=== PATIENT | female | born 1995 ===

== ENCOUNTER 2018-02-10 02:00 | Emergency (ER) | payer MEDICAID ==
[2018-02-10 02:08] VITALS: BP 133/76
[2018-02-10] MEDS ORDERED: TORADOL ONE (02:15)
[2018-02-10] MEDS ORDERED: NACL 0.9% 1000 ML 1,000 ML IV ONE (02:50)
[2018-02-10] MEDS ORDERED: TORADOL IV ONE (03:20)
== END 2018-02-10 03:22 | disposition left against medical advice (07) ==
LOC: ED 02:00
DX: R10.9 Unspecified abdominal pain (principal); R11.10 Vomiting, unspecified; Z53.21 Procedure and treatment not carried out due to patient leaving prior to being seen by health care provider
CPT/HCPCS: J1885

== ENCOUNTER 2018-12-03 06:21 | Emergency (ER) | payer MEDICAID, OTHER ==
[2018-12-03] MEDS ORDERED: ZOFRAN IV ONE ×2 (06:48→11:11)
[2018-12-03] MEDS ORDERED: DILAUDID IV ONE ×3 (06:48→10:16)
--- NOTE | 2018-12-03 06:55 | Emergency Department Report ---
ED Abdominal Pain HPI - General Chief Complaint: Abdominal Pain Stated Complaint: ABD PAIN Time Seen by Provider: 12/03/18 06:47 Source: patient, EMS Mode of arrival: Stretcher Limitations: No Limitations - History of Present Illness Initial Comments: Patient is a 22-year-old female that presents emergency room with abdominal pain that started 3 hours ago. Patient states that her abdominal pain is in her lower abdomen and is severe. Patient states the pain is intermittent. Patient states the pain is better with rest and worse with movement. Patient states she is also having nausea and vomiting.. Patient denies R vomitus. Patient is also complaining of constipation. Patient denies blood in her stool. Patient denies fever or chills. Patient denies chest pain shortness of breath. MD Complaint: abdominal pain -: Sudden Location: suprapubic Radiation: none Migration to: no migration Severity: severe Severity scale (0 -10): 10 Quality: stabbing Consistency: constant Improves With: rest Worsens With: vomiting, movement Associated Symptoms: nausea, vomiting, constipation. denies: diarrhea, fever, chills, dysuria, hematemesis, hematochezia, melena, hematuria, anorexia, syncope - Related Data Previous Rx's Medication Instructions Recorded Last Taken Type Ondansetron [Zofran Odt] 4 mg PO Q8HR PRN #12 tab.rapdis 12/03/18 Unknown Rx Sulfamethoxazole/Trimethoprim 1 each PO BID 10 Days #20 tablet 12/03/18 Unknown Rx [Bactrim DS TAB] Allergies Allergy/AdvReac Type Severity Reaction Status Date / Time No Known Allergies Allergy Verified 03/07/16 03:03 ED Review of Systems ROS: Stated complaint: ABD PAIN Other details as noted in HPI Constitutional: denies: chills, fever Eyes: denies: eye pain, eye discharge, vision change ENT: denies: ear pain, throat pain Respiratory: denies: cough, shortness of breath, wheezing Cardiovascular: denies: chest pain, palpitations Endocrine: no symptoms reported Gastrointestinal: abdominal pain, nausea, vomiting, constipation. denies: diarrhea Genitourinary: denies: urgency, dysuria, discharge Musculoskeletal: denies: back pain, joint swelling, arthralgia Skin: denies: rash, lesions Neurological: denies: headache, weakness, paresthesias Psychiatric: denies: anxiety, depression Hematological/Lymphatic: denies: easy bleeding, easy bruising ED Past Medical Hx - Past Medical History Previous Medical History?: Yes Hx Hypertension: Yes (out of lisinipril for 3 weeks.) Hx Diabetes: Yes Additional medical history: Lupus. Opiate abuse and is currently on methadone - Surgical History Past Surgical History?: No - Family History Family history: no significant - Social History Smoking Status: Never Smoker Substance Use Type: Prescribed - Medications Home Medications: Home Medications Medication Instructions Recorded Confirmed Last Taken Type Ondansetron [Zofran Odt] 4 mg PO Q8HR PRN #12 tab.rapdis 12/03/18 Unknown Rx Sulfamethoxazole/Trimethoprim 1 each PO BID 10 Days #20 tablet 12/03/18 Unknown Rx [Bactrim DS TAB] ED Physical Exam - General Limitations: No Limitations General appearance: alert, in no apparent distress - Head Head exam: Present: atraumatic, normocephalic - Eye Eye exam: Present: normal appearance - ENT ENT exam: Present: mucous membranes moist - Neck Neck exam: Present: normal inspection - Respiratory Respiratory exam: Present: normal lung sounds bilaterally. Absent: respiratory distress, wheezes, rales - Cardiovascular Cardiovascular Exam: Present: regular rate, normal rhythm. Absent: systolic murmur, diastolic murmur, rubs, gallop - GI/Abdominal GI/Abdominal exam: Present: soft, tenderness (right upper quadrant tenderness and left lower quadrant tenderness), normal bowel sounds - Rectal Rectal exam: Present: deferred - Extremities Exam Extremities exam: Present: normal inspection - Back Exam Back exam: Present: normal inspection - Neurological Exam Neurological exam: Present: alert, oriented X3 - Psychiatric Psychiatric exam: Present: normal affect, normal mood - Skin Skin exam: Present: warm, dry, intact, normal color. Absent: rash ED Course Vital Signs 12/03/18 12/03/18 12/03/18 06:41 06:42 06:45 Temperature Pulse Rate 77 82 Respiratory 10 L 18 11 L Rate Blood Pressure Blood Pressure [Left] O2 Sat by Pulse 100 100 97 Oximetry 12/03/18 12/03/18 12/03/18 06:46 07:00 07:30 Temperature 98.2 F Pulse Rate 64 77 Respiratory 8 L 21 Rate Blood Pressure 151/95 149/99 Blood Pressure [Left] O2 Sat by Pulse 99 98 Oximetry 12/03/18 12/03/18 08:01 10:22 Temperature Pulse Rate 72 87 Respiratory 10 L 18 Rate Blood Pressure Blood Pressure 159/90 [Left] O2 Sat by Pulse 100 99 Oximetry - Reevaluation(s) Reevaluation #1: Discussed results with patient. Patient states she still having significant pain. Patient was given another milligram Dilaudid. Patient's ultrasound is pending. 12/03/18 10:16 She states her pain is better. She tolerated by mouth intake. Patient states all of her pain is gone and she is ready to be discharged. Patient walking around the room and states she needs to get to her methadone clinic for methadone refill. . Patient states she required so much morphine due to the fact she is on daily methadone and has a history of opiate use. Discussed all results with patient. Patient is stable for discharge. Patient will be discharged home. Patient agrees to plan of care. Patient given discharge instructions. Patient voiced understanding of discharge instructions. 12/03/18 11:39 ED Medical Decision Making - Lab Data Result diagrams: 12/03/18 06:40 12/03/18 06:40 - Radiology Data ULTRASOUND ABDOMEN LIMITED: TECHNIQUE: Transabdominal ultrasound with color Doppler interrogation. HISTORY: right upper quadrant abdominal pain. COMPARISON: CT abdomen pelvis with contrast performed the same day. FINDINGS: LIVER: Normal. BILIARY SYSTEM: Normal. PANCREAS: Normal. RIGHT KIDNEY: Normal. PROXIMAL AORTA: Normal. ASCITES: None. IMPRESSION: Unremarkable exam. Dense material seen in the gallbladder presumably represented vicarious excretion of contrast on CT. CT ABDOMEN PELVIS WITH CONTRAST: HISTORY: Abdominal pain. COMPARISON: none. TECHNIQUE: Helical CT in 1.25mm intervals following IV contrast. Sagittal and coronal reconstructions. FINDINGS: Lung bases: Patchy areas of groundglass infiltration are identified in the right middle lobe and bilateral lower lobes. No pleural effusion or parenchymal lung disease is appreciated. Heart size is normal. Liver: Normal. Biliary system: There is a slightly dense material within the gallbladder which could represent sludge or vicarious excretion of contrast. No calcified gallstones or biliary dilatation is appreciated. Pancreas: Normal. Spleen: Normal. Kidneys/ureters/bladder: Normal. Adrenal glands: Normal. Aorta: Normal. Intestines: Within normal limits given no oral contrast was administered. Appendix: The appendix is not confidently identified, correlate with surgical history. Pelvic viscera: Normal. Ascites: None. Adenopathy: None. Musculoskeletal: Normal. IMPRESSION: Patchy infiltrates at the lung bases concerning for infectious process or pneumonitis. Possible sludge in the gallbladder but no findings to suggest acute cholecystitis. - Medical Decision Making Patient is a 22-year-old female that presents emergency room with abdominal pain and nausea vomiting. Patient had a CT done which show gallbladder sludge and ultrasound was done which shows the gallbladder is normal. The patient's labs unremarkable except for elevated white count and elevated white count most like secondary reactive to pain and nausea vomiting. Patient's UA was positive for UTI. Patient given antibiotics in the ER. Patient also given a prescription at discharge. Patient is stable for discharge. Patient's findings consistent with gastroenteritis and UTI. Patient given discharge instructions - Differential Diagnosis gastroenteritis. UTI. Abdominal pain. Gallbladder pain Critical care attestation.: If time is entered above; I have spent that time in minutes in the direct care of this critically ill patient, excluding procedure time. ED Disposition Clinical Impression: Gastroenteritis, Gallbladder sludge Abdominal pain Qualifiers: Abdominal location: generalized Qualified Code(s): R10.84 - Generalized abdominal pain UTI (urinary tract infection) Qualifiers: Urinary tract infection type: acute cystitis Hematuria presence: with hematuria Qualified Code(s): N30.01 - Acute cystitis with hematuria Disposition: TO HOME OR SELFCARE Is pt being admited?: No Does the pt Need Aspirin: No Condition: Stable Instructions: Urinary Tract Infection in Women (ED), Gastroenteritis (ED), Acute Nausea and Vomiting (ED), Abdominal Pain (ED) Additional Instructions: Patient to follow-up with primary care in 2-3 days. Patient to eat a Delmi diet. Patient to see general surgery for further management of gallbladder. Patient to take Tylenol or ibuprofen when necessary for pain. Patient to return to ER if condition worsens. Patient to take meds as directed. Patient to increase water. Patient to rest. Patient to continue all meds. Prescriptions: Sulfamethoxazole/Trimethoprim [Bactrim DS TAB] 1 each PO BID 10 Days #20 tablet Ondansetron [Zofran Odt] 4 mg PO Q8HR PRN #12 tab.rapdis PRN Reason: Nausea And Vomiting Referrals: ARACELY RAYMUNDO MD [Primary Care Provider] - 2-3 Days Time of Disposition: 11:42
[2018-12-03 07:02] LABS: Basophils # (Auto) 0.1 K/mm3 (0.0-0.1); Basophils % (Auto) 0.7 % (0.0-1.8); Eosinophils % (Auto) 0.1 % (0.0-4.3); Hemoglobin 11.4 gm/dl (10.1-14.3); Lymphocytes # (Auto) 1.3 K/mm3 (1.2-5.4); Lymphocytes % (Auto) 8.8 % (13.4-35.0); Mean Corpuscular HGB Conc 34 % (30-34); Mean Corpuscular Volume 88 fl (79-97); Monocytes # (Auto) 0.9 K/mm3 (0.0-0.8); Monocytes % (Auto) 6.3 % (0.0-7.3); Platelet Count 232 K/mm3 (140-440); Red Blood Count 3.86 M/mm3 (3.65-5.03); Red Cell Distribution Width 17.6 % (13.2-15.2)
[2018-12-03] MEDS ORDERED: NACL 0.9% 1000 ML 1,000 ML IV ONE (07:26)
[2018-12-03 07:36] LABS: Alanine Aminotransferase 26 units/L (7-56); Albumin 4.2 g/dL (3.9-5); BUN/Creatinine Ratio 15; Blood Urea Nitrogen 12 mg/dL (7-17); Calcium 9.1 mg/dL (8.4-10.2); Hemolysis Index 6
--- NOTE | 2018-12-03 09:13 | Cat Scan Report ---
CT ABDOMEN PELVIS WITH CONTRAST: HISTORY: Abdominal pain. COMPARISON: none. TECHNIQUE: Helical CT in 1.25mm intervals following IV contrast. Sagittal and coronal reconstructions. FINDINGS: Lung bases: Patchy areas of groundglass infiltration are identified in the right middle lobe and bilateral lower lobes. No pleural effusion or parenchymal lung disease is appreciated. Heart size is normal. Liver: Normal. Biliary system: There is a slightly dense material within the gallbladder which could represent sludge or vicarious excretion of contrast. No calcified gallstones or biliary dilatation is appreciated. Pancreas: Normal. Spleen: Normal. Kidneys/ureters/bladder: Normal. Adrenal glands: Normal. Aorta: Normal. Intestines: Within normal limits given no oral contrast was administered. Appendix: The appendix is not confidently identified, correlate with surgical history. Pelvic viscera: Normal. Ascites: None. Adenopathy: None. Musculoskeletal: Normal. IMPRESSION: Patchy infiltrates at the lung bases concerning for infectious process or pneumonitis. Possible sludge in the gallbladder but no findings to suggest acute cholecystitis.
[2018-12-03] MEDS ORDERED: ZOSYN/NS 3.375GM/50ML 3.375 GM/50 ML BAG IV ONE (10:00)
--- NOTE | 2018-12-03 10:05 | Ultrasound Report ---
ULTRASOUND ABDOMEN LIMITED: TECHNIQUE: Transabdominal ultrasound with color Doppler interrogation. HISTORY: right upper quadrant abdominal pain. COMPARISON: CT abdomen pelvis with contrast performed the same day. FINDINGS: LIVER: Normal. BILIARY SYSTEM: Normal. PANCREAS: Normal. RIGHT KIDNEY: Normal. PROXIMAL AORTA: Normal. ASCITES: None. IMPRESSION: Unremarkable exam. Dense material seen in the gallbladder presumably represented vicarious excretion of contrast on CT.
[2018-12-03] MEDS ORDERED: MORPHINE IV ONE ×2 (10:17→11:11)
[2018-12-03 10:23] VITALS: BP 159/90
[2018-12-03 11:42] LABS: Bilirubin,Urine NEG (Negative); Blood,Urine SM (Negative); Color,Urine Straw (Yellow); Protein,Urine <15 mg/dL mg/dL (Negative); Urobilinogen,Urine < 2.0 mg/dL (<2.0)
== END 2018-12-03 11:45 | disposition home or self-care (01) ==
LOC: ED 06:21
DX: N39.0 Urinary tract infection, site not specified (principal); K52.9 Noninfective gastroenteritis and colitis, unspecified; K82.8 Other specified diseases of gallbladder; I10 Essential (primary) hypertension; E11.9 Type 2 diabetes mellitus without complications
CPT/HCPCS: 36415; 74177; 76705; 80053; 81001; 83690; 84703; 85025; 96361; 96365; 96375; 96376; 99284; J1170; J2270; J2405; J2543; J7030; Q9967

== ENCOUNTER 2019-06-24 17:09 | Emergency (ER) | payer OTHER ==
[2019-06-24] MEDS ORDERED: FAMOTIDINE 20 MG/2 ML INJ IV ONE (17:48)
[2019-06-24] MEDS ORDERED: ONDANSETRON 4 MG/2 ML INJ IV ONE (17:48)
[2019-06-24] MEDS ORDERED: MORPHINE 4 MG/1 ML INJ IV ONE (17:48)
[2019-06-24] MEDS ORDERED: SODIUM CHLORIDE 0.9% 1000 ML 1,000 ML IV ONE (17:49)
--- NOTE | 2019-06-24 18:00 | Emergency Department Report ---
ED Abdominal Pain HPI - General Chief Complaint: Abdominal Pain Stated Complaint: ABD PAIN Time Seen by Provider: 06/24/19 17:35 Source: patient, EMS Mode of arrival: Wheelchair Limitations: No Limitations - History of Present Illness Initial Comments: Ms. De La Cruz is a 23 yo female wit hx of SLE and mariujuana use who presents with 2 days of lower abdominal pain. She has had recurrent abdominal pain for several years. She attributes the pain to her lupus. She's had constipation. Last bowel movement 2 days ago. She stated sheonly urinated twice in the last days. She had poor appetite. She has lost 20 pounds over the last 2 weeks. Her lupus specialist this affiliated with [facility]. She has been noncompliant with medication regimen due to homelessness. She is now obtaining unemployment payments minutes. Her next appointment with her lupus specialist is in August. She hopes to resume her medication regimen at this time. Denies vaginal bleeding. Denies vaginal discharge. Gradual onset of stabbing pain in right lower and left lower quadrants. Pain does not radiate. Pain is constant. Pain does not change with movement. She has been under the care of a methadone clinic over the last year. She stopped taking methadone 6 weeks ago. The methadone was used to control her pain in joints back and abdomen attributed to lupus. Patient arrived via EMS. MD Complaint: abdominal pain -: Gradual, days(s) Location: LLQ, RLQ Radiation: none Severity: moderate Severity scale (0 -10): 6 Quality: stabbing Consistency: constant Improves With: nothing Worsens With: nothing Associated Symptoms: constipation, anorexia - Related Data Previous Rx's Medication Instructions Recorded Last Taken Type Ondansetron [Zofran Odt] 4 mg PO Q8HR PRN #12 tab.rapdis 12/03/18 Unknown Rx Sulfamethoxazole/Trimethoprim 1 each PO BID 10 Days #20 tablet 12/03/18 Unknown Rx [Bactrim DS TAB] Promethazine [Phenergan] 25 mg PO Q6HR PRN #10 tab 06/24/19 Unknown Rx Allergies Allergy/AdvReac Type Severity Reaction Status Date / Time No Known Allergies Allergy Verified 03/07/16 03:03 ED Review of Systems ROS: Stated complaint: ABD PAIN Other details as noted in HPI Comment: All other systems reviewed and negative Constitutional: denies: fever, malaise Cardiovascular: denies: chest pain Gastrointestinal: abdominal pain, nausea, vomiting, constipation Skin: denies: rash, lesions ED Past Medical Hx - Past Medical History Previous Medical History?: Yes Hx Hypertension: Yes Hx Diabetes: No Additional medical history: Lupus. Pt states she has not taken methadone in 5 weeks and denies narcotic abuse. Her last visit showed methadone use and narcotic abuse - Surgical History Past Surgical History?: No - Social History Smoking Status: Unknown if ever smoked Substance Use Type: None - Medications Home Medications: Home Medications Medication Instructions Recorded Confirmed Last Taken Type Ondansetron [Zofran Odt] 4 mg PO Q8HR PRN #12 tab.rapdis 12/03/18 Unknown Rx Sulfamethoxazole/Trimethoprim 1 each PO BID 10 Days #20 tablet 12/03/18 Unknown Rx [Bactrim DS TAB] Promethazine [Phenergan] 25 mg PO Q6HR PRN #10 tab 06/24/19 Unknown Rx ED Physical Exam - General Limitations: No Limitations General appearance: alert, in no apparent distress, other (legs flexed at hip and knee with crossed leg swing comfortably, moves and transfers briskly) - Head Head exam: Present: atraumatic, normocephalic - Eye Eye exam: Present: normal appearance - ENT ENT exam: Present: mucous membranes moist - Neck Neck exam: Present: normal inspection, full ROM - Respiratory Respiratory exam: Present: normal lung sounds bilaterally. Absent: respiratory distress, wheezes, rales, rhonchi - Cardiovascular Cardiovascular Exam: Present: regular rate, normal rhythm, normal heart sounds. Absent: systolic murmur, diastolic murmur, rubs, gallop - GI/Abdominal GI/Abdominal exam: Present: soft, normal bowel sounds. Absent: distended, ten derness, guarding, rebound - Extremities Exam Extremities exam: Present: normal inspection - Neurological Exam Neurological exam: Present: alert, oriented X3 - Psychiatric Psychiatric exam: Present: normal affect, normal mood - Skin Skin exam: Present: warm, dry, intact, normal color. Absent: rash ED Course Vital Signs 06/24/19 06/24/19 17:20 18:17 Temperature 99.4 F Pulse Rate 75 76 Respiratory 20 14 Rate Blood Pressure 124/86 Blood Pressure 125/90 [Left] O2 Sat by Pulse 100 99 Oximetry ED Medical Decision Making - Lab Data Result diagrams: 06/24/19 18:02 06/24/19 18:02 Laboratory Results - last 24 hr 06/24/19 06/24/19 06/24/19 18:02 18:02 18:02 WBC 5.3 RBC 4.10 Hgb 12.6 Hct 37.4 MCV 91 MCH 31 MCHC 34 RDW 15.7 H Plt Count 286 Lymph % (Auto) 40.2 H Bent % (Auto) 9.6 H Eos % (Auto) 0.5 Baso % (Auto) 1.0 Lymph # 2.1 Bent # 0.5 Eos # 0.0 Baso # 0.1 Seg Neutrophils % 48.7 Seg Neutrophils # 2.6 Sodium 142 Potassium 3.6 Chloride 106.0 Carbon Dioxide 21 L Anion Gap 19 BUN 6 L Creatinine 0.7 Estimated GFR > 60 BUN/Creatinine Ratio 9 Glucose 92 POC Glucose Calcium 9.2 Total Bilirubin 0.40 Direct Bilirubin < 0.2 Indirect Bilirubin 0.2 AST 10 ALT 8 Alkaline Phosphatase 69 Total Protein 7.1 Albumin 4.2 Albumin/Globulin Ratio 1.4 Lipase 24 HCG, Qual Negative 06/24/19 18:32 WBC RBC Hgb Hct MCV MCH MCHC RDW Plt Count Lymph % (Auto) Bent % (Auto) Eos % (Auto) Baso % (Auto) Lymph # Bent # Eos # Baso # Seg Neutrophils % Seg Neutrophils # Sodium Potassium Chloride Carbon Dioxide Anion Gap BUN Creatinine Estimated GFR BUN/Creatinine Ratio Glucose POC Glucose 88 Calcium Total Bilirubin Direct Bilirubin Indirect Bilirubin AST ALT Alkaline Phosphatase Total Protein Albumin Albumin/Globulin Ratio Lipase HCG, Qual - Medical Decision Making Ms. De La Cruz presents with lower abdominal pain. Normal exam. Appears well. DDX: IBS, PID, cannabinoid hyperemesis syndrome Recommended supportive care. rx: promethazine CBC chemistry within normal limits. Normal white count 5000. negative. Critical care attestation.: If time is entered above; I have spent that time in minutes in the direct care of this critically ill patient, excluding procedure time. ED Disposition Clinical Impression: SLE (systemic lupus erythematosus), Abdominal pain Disposition: TO HOME OR SELFCARE Is pt being admited?: No Does the pt Need Aspirin: No Condition: Stable Instructions: Abdominal Pain (ED) Prescriptions: Promethazine [Phenergan] 25 mg PO Q6HR PRN #10 tab PRN Reason: Nausea Referrals: [facility] [Outside] - 3-5 Days
[2019-06-24 18:23] LABS: Basophils # (Auto) 0.1 K/mm3 (0.0-0.1); Eosinophils % (Auto) 0.5 % (0.0-4.3); Hematocrit 37.4 % (30.3-42.9); Hemoglobin 12.6 gm/dl (10.1-14.3); Lymphocytes # (Auto) 2.1 K/mm3 (1.2-5.4); Lymphocytes % (Auto) 40.2 % (13.4-35.0); Mean Corpuscular HGB Conc 34 % (30-34); Mean Corpuscular Volume 91 fl (79-97); Monocytes # (Auto) 0.5 K/mm3 (0.0-0.8); Monocytes % (Auto) 9.6 % (0.0-7.3); Platelet Count 286 K/mm3 (140-440); Red Cell Distribution Width 15.7 % (13.2-15.2)
[2019-06-24 18:36] LABS: Alanine Aminotransferase 8 units/L (7-56); Albumin 4.2 g/dL (3.9-5); BUN/Creatinine Ratio 9; Blood Urea Nitrogen 6 mg/dL (7-17); Calcium 9.2 mg/dL (8.4-10.2); Hemolysis Index 11
[2019-06-24 18:51] LABS: Bilirubin,Direct < 0.2 mg/dL (0-0.2)
[2019-06-24] MEDS ORDERED: oxyCODONE /ACETAMINOPHEN 5-325MG TAB PO ONE (19:35)
[2019-06-24 19:51] VITALS: BP 141/99
== END 2019-06-24 19:50 | disposition home or self-care (01) ==
LOC: ED 17:09
DX: M32.9 Systemic lupus erythematosus, unspecified (principal); R10.9 Unspecified abdominal pain; I10 Essential (primary) hypertension
CPT/HCPCS: 36415; 80048; 80076; 82962; 83690; 84703; 85025; 96361; 96374; 96375; 99284; J2270; J2405; J7030

== ENCOUNTER 2020-03-09 03:28 | Observation (INO) | payer MEDICAID ==
[2020-03-09] MEDS: LORazepam 2 MG/ML VIAL IV PRN ×4 (03:31→17:00)
[2020-03-09] MEDS ORDERED: LACTATED RINGERS 1,000 ML ONE (03:33)
[2020-03-09] MEDS ORDERED: levETIRAcetam 750 MG in DEXTROSE 5% IN WATER 100 ML IV SCH (04:14)
[2020-03-09] MEDS ORDERED: LACTATED RINGERS 500 ML IV ONE (04:17)
--- NOTE | 2020-03-09 04:23 | History and Physical Report ---
History of Present Illness Date of examination: 03/09/20 Chief complaint: seizures History of present illness: Pt is a 24 year old SCOTT 05/11/20 at 31w0d presents via EMS secondary to seizures at home in the bathroom, exact time unknown., around 3 am. She does report a h/o of seizures since childhood. She reports irregular contractions, but denies vaginal bleeding or leakage of fluid. She has had care at [facility] with [facility], but records are not available for review at this time. History is limited as pt is postictal. Past History Past Medical History: seizure (On Keppra, but pt reports recent nausea and vomiting and not taking her medicaiton regularly), other (Lupus ) - Obstetrical History Expected Date of Delivery: 05/11/20 Actual Gestation: 31 Week(s) 0 Day(s) : 2 Para: 1 Hx # Term Pregnancies: 0 Number of Pregnancies: 1 Spontaneous Abortions: 0 Induced : 0 Number of Living Children: 1 Medications and Allergies Allergies Allergy/AdvReac Type Severity Reaction Status Date / Time No Known Allergies Allergy Verified 03/07/16 03:03 Home Medications Medication Instructions Recorded Confirmed Last Taken Type Ondansetron [Zofran Odt] 4 mg PO Q8HR PRN #12 tab.rapdis 12/03/18 Unknown Rx Sulfamethoxazole/Trimethoprim 1 each PO BID 10 Days #20 tablet 12/03/18 Unknown Rx [Bactrim DS TAB] Promethazine [Phenergan] 25 mg PO Q6HR PRN #10 tab 06/24/19 Unknown Rx Active Meds: Active Medications Levetiracetam 750 mg/ Dextrose 107.5 mls @ 400 mls/hr IV Q12HR@0600,1800 NIGHAT Lactated Ringer's (Lactated Ringers) 500 mls @ 999 mls/hr IV BOLUS ONE Stop: 03/09/20 04:47 Lorazepam (Ativan) 2 mg IV Q4H PRN PRN Reason: Agitation Review of Systems All systems: negative - Vital Signs Vital signs: Vital Signs Pulse Pulse Ox 84 100 03/09/20 03:33 03/09/20 03:33 Temp Pulse Resp BP Pulse Ox 95 H 136/80 100 03/09/20 04:18 03/09/20 04:06 03/09/20 04:18 - Physical Exam Breasts: Positive: deferred Abdomen: Positive: soft (gravid ) Genitourinary (Female): Positive: normal external genitalia Uterus: Positive: enlarged (gravid ) Extremities: Positive: normal - Obstetrical FHR: auscultation normal Uterine Contraction Monitor Mode: External Cervical Dilatation: 1 Cervical Effacement Percentage: 50 station: -3 Uterine Contraction Pattern: Irregular Uterine Tone Measurement Phase: Resting Results Result Diagrams: 03/09/20 04:16 All other labs normal. Assessment and Plan A: IUP at 31w0d Seizure Disorder with frequent seizures since hospital arrival despite two doses of Ativan and IV Keppra 750 mg Lupus P: Admit to antepartum service Neurology consult- I spoke with Dr Centeno via telephone who recommends an additional 2g Keppra now then 1000 mg PO BID subsequently Ativan PRN ICU consult BPP Closely monitor maternal and status
[2020-03-09] MEDS ORDERED: levETIRAcetam 2,000 MG in DEXTROSE 5% IN WATER 100 ML IV SCH (05:22)
[2020-03-09] MEDS ORDERED: levETIRAcetam 2,000 MG in DEXTROSE 5% IN WATER 100 ML IV ONE (05:30)
[2020-03-09 05:32] LABS: Alanine Aminotransferase 9 units/L (7-56); Albumin 3.4 g/dL (3.9-5); Blood Urea Nitrogen 7 mg/dL (7-17); Calcium 8.3 mg/dL (8.4-10.2); Hemolysis Index 6
[2020-03-09 05:56] LABS: BUN/Creatinine Ratio 14
--- NOTE | 2020-03-09 06:20 | Ultrasound Report ---
ULTRASOUND OBSTETRIC INDICATION / CLINICAL INFORMATION: IUP at 31 wk, seizures. TECHNIQUE: Transabdominal. COMPARISON: None available. FINDINGS: There is a single intrauterine . Biparietal Diameter = 7.4 cm = 29.5 weeks.days Head Circumference = 27.9 cm = 30.3 weeks.days Abdominal Circumference = 22.8 cm = 27.1 weeks.days Femur Length = 5.2 cm = 27.6 weeks.days Average Ultrasound Age (AUA) = 28.6 weeks.days Heart Rate: 140 beats per minute. Estimated Weight in grams (if calculated): 1139 Position: cephalic. Cervix: closed. Amniotic Fluid Volume: normal Amniotic Fluid Index (YE) in cm (if calculated): 9.4. Maternal Adnexa: Not visualized IMPRESSION: 1. Single, living intrauterine with estimated sonographic age of 28.6 weeks.days 2. No significant sonographic abnormality. Signer Name: Cristino Osorio MD Signed: 03/09/2020 6:15 AM Workstation Name: [id number]
[2020-03-09 07:31] LABS: Basophils % (Auto) 0.2 % (0.0-1.8); Eosinophils % (Auto) 0.2 % (0.0-4.3); Hematocrit 26.3 % (30.3-42.9); Hemoglobin 9.1 gm/dl (10.1-14.3); Lymphocytes % (Auto) 11.6 % (13.4-35.0); Mean Corpuscular HGB Conc 35 % (30-34); Mean Corpuscular Volume 96 fl (79-97); Monocytes # (Auto) 0.6 K/mm3 (0.0-0.8); Monocytes % (Auto) 6.2 % (0.0-7.3); Platelet Count 275 K/mm3 (140-440); Red Blood Count 2.74 M/mm3 (3.65-5.03)
[2020-03-09] MEDS ORDERED: LORazepam 2 MG/ML VIAL ONE (07:38)
--- NOTE | 2020-03-09 08:53 | Event Note ---
Date: 03/09/20 No Neurologist in person at this facility, so no order placed in consult. Neurologist consulted by phone with recommendations for Keppra and Ativan outlined and implemented previously. Due to other clinical circumstances, delay in order in computer for Hospitalist consult. Dr Vila called earlier this morning and aware of this patient and need for ICU admission. Continue to monitor maternal and status.
[2020-03-09] MEDS ORDERED: MINERAL OIL/PETROLATUM, WHITE OPHTH OINT 3.5 GM OU PRN (09:13)
[2020-03-09] MEDS ORDERED: LIP THERAPY VASELINE TP PRN (09:13)
--- NOTE | 2020-03-09 09:19 | Consultation ---
History of Present Illness - Reason for Consult Consult date: 03/09/20 Management of seizure disorder Requesting physician: MICHELLE HERNANDEZ - History of Present Illness Patient admitted for continued seizures and postictal state patient is . Pt is a 24 year old SCOTT 05/11/20 at 31w0d presents via EMS secondary to seizures at home in the bathroom, exact time unknown., around 3 am. She does report a h/o of seizures since childhood. She reports irregular contractions, but denies vaginal bleeding or leakage of fluid. She has had care at [place] with [facility], but records are not available for review at this time. History is limited as pt is postictal. Past History Past Medical History: No medical history Past Surgical History: No surgical history Social history: lives with family Family history: hypertension Medications and Allergies Allergies Allergy/AdvReac Type Severity Reaction Status Date / Time No Known Allergies Allergy Verified 03/07/16 03:03 Home Medications Medication Instructions Recorded Confirmed Last Taken Type Ondansetron [Zofran Odt] 4 mg PO Q8HR PRN #12 tab.rapdis 12/03/18 Unknown Rx Sulfamethoxazole/Trimethoprim 1 each PO BID 10 Days #20 tablet 12/03/18 Unknown Rx [Bactrim DS TAB] Promethazine [Phenergan] 25 mg PO Q6HR PRN #10 tab 06/24/19 Unknown Rx Active Meds: Active Medications Levetiracetam (Keppra 1,000 Mg/Ns 0.75% 100ml) 1,000 mg in 100 mls @ 400 mls/hr IV ONCE ONE Stop: 03/09/20 09:28 Levetiracetam 750 mg/ Dextrose 107.5 mls @ 400 mls/hr IV Q12HR NIGHAT Lorazepam (Ativan) 2 mg IV Q4H PRN PRN Reason: Agitation Last Admin: 03/09/20 07:41 Dose: 2 mg Documented by: Review of Systems All systems: negative Neurological: seizures Exam - Constitutional Vitals: Temp Pulse Resp BP Pulse Ox 98.4 F 101 H 12 127/74 99 03/09/20 03:53 03/09/20 07:38 03/09/20 03:53 03/09/20 05:14 03/09/20 07:38 General appearance: Present: no acute distress, well-nourished - EENT Eyes: Present: PERRL ENT: hearing intact, clear oral mucosa - Neck Neck: Present: supple, normal ROM - Respiratory Respiratory effort: normal Respiratory: bilateral: CTA - Cardiovascular Heart rate: 78 Rhythm: regular Heart Sounds: Present: S1 & S2. Absent: rub, click - Extremities Extremities: no ischemia, pulses intact, pulses symmetrical, No edema Peripheral Pulses: within normal limits - Abdominal General gastrointestinal: Present: soft, non-tender, non-distended, normal bowel sounds Female genitourinary: Present: normal - Rectal Rectal Exam: deferred - Integumentary Integumentary: Present: clear, warm, dry - Musculoskeletal Musculoskeletal: gait normal, strength equal bilaterally - Psychiatric Psychiatric: appropriate mood/affect, intact judgment & insight - Neurologic Neurologic: CNII-XII intact, moves all extremities - Allied Health Allied health notes reviewed: nursing, case management Results - Labs CBC & Chem 7: 03/09/20 06:53 03/09/20 04:16 Labs: Abnormal lab results 03/09/20 03/09/20 03/09/20 Range/Units 04:16 05:04 06:53 RBC 2.74 L (3.65-5.03) M/mm3 Hgb 9.1 L (10.1-14.3) gm/dl Hct 26.3 L (30.3-42.9) % MCH 33 H (28-32) pg MCHC 35 H (30-34) % RDW 13.0 L (13.2-15.2) % Lymph % (Auto) 11.6 L (13.4-35.0) % Lymph # (Auto) 1.0 L (1.2-5.4) K/mm3 Seg Neutrophils % 81.8 H (40.0-70.0) % POC ABG pCO2 22.5 L (32.0-48.0) mmHg POC ABG pO2 45.6 L (83-108) mmHg ABG Hemoglobin 4.2 L (12.0-17.5) ABG Sodium 130.2 L (136.0-145.0) mmol/L ABG Glucose 48 L (65-95) mg/dL Potassium 3.3 L (3.6-5.0) mmol/L Creatinine 0.5 L (0.6-1.2) mg/dL Glucose 104 H (65-100) mg/dL POC Glucose (70-105) Calcium 8.3 L (8.4-10.2) mg/dL Total Protein 6.1 L (6.3-8.2) g/dL Albumin 3.4 L (3.9-5) g/dL Arterial Blood Glucose 48 L (65-95) mg/dL Arterial Blood Ionized Calcium 4.2 L (4.6-5.3) mg/dL 03/09/20 Range/Units 08:34 RBC (3.65-5.03) M/mm3 Hgb (10.1-14.3) gm/dl Hct (30.3-42.9) % MCH (28-32) pg MCHC (30-34) % RDW (13.2-15.2) % Lymph % (Auto) (13.4-35.0) % Lymph # (Auto) (1.2-5.4) K/mm3 Seg Neutrophils % (40.0-70.0) % POC ABG pCO2 (32.0-48.0) mmHg POC ABG pO2 (83-108) mmHg ABG Hemoglobin (12.0-17.5) ABG Sodium (136.0-145.0) mmol/L ABG Glucose (65-95) mg/dL Potassium (3.6-5.0) mmol/L Creatinine (0.6-1.2) mg/dL Glucose (65-100) mg/dL POC Glucose 109 H (70-105) Calcium (8.4-10.2) mg/dL Total Protein (6.3-8.2) g/dL Albumin (3.9-5) g/dL Arterial Blood Glucose (65-95) mg/dL Arterial Blood Ionized Calcium (4.6-5.3) mg/dL Assessment and Plan The high probability OF a clinically significant sudden or life-threatening deterioration of the cardiorespiratory system and endocrine system required my full and direct attention, intervention and postoperative management. The aggregate critical care time was 32 minutes. 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
[2020-03-09 09:32] LABS: Bacteria,Urine 1+ /HPF (Negative); Bilirubin,Urine NEG (Negative); Blood,Urine NEG (Negative); Color,Urine Yellow (Yellow); Mucus,Urine 1+ /HPF; Protein,Urine <15 mg/dL mg/dL (Negative); Urobilinogen,Urine < 2.0 mg/dL (<2.0)
[2020-03-09 09:38] LABS: Amphetamine Screen,Urine Negative; Benzodiazepines Screen,Urine Negative; Cocaine Screen,Urine Negative; Methadone Screen,Urine Negative; Opiate Screen,Urine Negative
[2020-03-09] MEDS ORDERED: LACOSAMIDE 100 MG in SODIUM CHLORIDE 0.9% 100 ML IV STA (09:50)
[2020-03-09] MEDS ORDERED: levETIRAcetam 1000 MG/NS 0.75% 1,000 MG/100 ML BAG IV ONE (10:00)
[2020-03-09] MEDS ORDERED: MIDAZOLAM 100 MG in SODIUM CHLORIDE 0.9% 80 ML IV SCH (10:00)
--- NOTE | 2020-03-09 10:01 | Consultation ---
History of Present Illness Consult date: 03/09/20 History of present illness: [facility] Tele[facility]urology Consult Services Stat Consult Date of Service: 03/09/2020 09:27:39 Impression: Seizure Comments/Sign-Out: the patient is already received a significant amount of Keppra would not go higher than 4 g daily even for possible status. Would load her with Vimpat 100 mg to be planned IV every 12 hours. She really needs a stat EEG. She is received multiple doses of Ativan per movements are atypical and also for these medicines to have such little impact on her seizures with this off-and-on phenomenon would be very unusual. Her movements can be redirected during examination which is not consistent with probable epileptic seizure. That being said until proven otherwise recommend starting another antiepileptic and getting a stat EEG to immediately determine whether or not these are epileptic or nonepileptic spells. This will be very important in order to avoid intubation or other adverse consequences and is pertinent young woman. If for some reason EEG cannot be performed in a timely fashion she would have to be transferred to another facility so correct diagnosis can be made CT HEAD: she has not yet had any neuro imaging if these spells continue she obviously needs a CT of her head and potentially MRI of the brain. Metrics: [facility] Notification Time: 03/09/2020 09:24:31 Stamp Time: 03/09/2020 09:27:39 Callback Response Time: 03/09/2020 09:26:10 Video Start Time: 03/09/2020 09:40:19 Our recommendations are outlined below. Recommendations: can start VIMPAT 100mg BID stat EEG Imaging Studies: MRI Head-can get stat ct head first when able Therapies: Physical Therapy, Occupational Therapy, Speech Therapy Assessment When Applicable Disposition: Neurology Follow Up Recommended Sign Out: Discussed with Primary Attending -- Chief Complaint: seizures History of Present Illness: Patient is a 24 year old Female. The patient is 28 weeks and having tonic clonic seizures with postictal combativeness. She has received IV ativan and Diane has a hx of seizures. She has had 4-5 seizures since arrival at 08:30 under one minutes. She has gotten 6mg ativan last at 07:41. She had 750 bolus then 2 gram at 6am. the patient has continued to have intermittent shaking spells in spite of these medications. Unfortunately the patient does not have any family nearby little else is known about her history. during these episodes she maintains her airway and oxygenation. her drug screen is negative. Sodium and glucose are okay. Examination: BP(121/73), Pulse(85), Blood Glucose(109) Neuro Exam: General: The patient appears somnolent but arouses intermittently between shaking spells face is symmetric tongue is midline extraocular movements are intact she moves all 4 extremities vigorously she exhibits intermittent bilateral whole-body shaking which is irregular. During the episodes examine her is able to move one leg at a time and the movements are immediately interrupted and then once she is repositioned the movements come back Due to the immediate potential for life-threatening deterioration due to underlying acute neurologic illness, I spent 35 minutes providing critical care. This time includes time for face to face visit via telemedicine, review of medical records, imaging studies and discussion of findings with providers, the patient and/or family. Dr Shanika Kang [facility] Case [id number] Medications and Allergies Allergies Allergy/AdvReac Type Severity Reaction Status Date / Time No Known Allergies Allergy Verified 03/07/16 03:03 Home Medications Medication Instructions Recorded Confirmed Last Taken Type Ondansetron [Zofran Odt] 4 mg PO Q8HR PRN #12 tab.rapdis 12/03/18 Unknown Rx Sulfamethoxazole/Trimethoprim 1 each PO BID 10 Days #20 tablet 12/03/18 Unknown Rx [Bactrim DS TAB] Promethazine [Phenergan] 25 mg PO Q6HR PRN #10 tab 06/24/19 Unknown Rx Active Meds: Active Medications Hydrophilic Ointment (Vaseline Lip Therapy) 1 applic TP Q2HR PRN PRN Reason: Dry Lips Levetiracetam (Keppra 1,000 Mg/Ns 0.75% 100ml) 1,000 mg in 100 mls @ 400 mls/hr IV ONCE ONE Stop: 03/09/20 10:14 Levetiracetam 1,000 mg/ (Dextrose) 110 mls @ 400 mls/hr IV Q12HR NIGHAT Midazolam HCl 100 mg/ Sodium (Chloride) 100 mls @ 2 mls/hr IV TITR NIGHAT; Protocol Lacosamide 100 mg/ Sodium (Chloride) 110 mls @ 100 mls/hr IV ONCE STA Stop: 03/09/20 10:55 Lacosamide 100 mg/ Sodium (Chloride) 110 mls @ 100 mls/hr IV Q12H NIGHAT Lorazepam (Ativan) 2 mg IV Q4H PRN PRN Reason: Agitation Last Admin: 03/09/20 07:41 Dose: 2 mg Documented by: Multi-Ingred Cream/Lotion/Oil/Oint (Artificial Tears Ophth Oint) 1 applic OU Q4HR PRN PRN Reason: Dry Eye(s) Potassium Chloride (K-Dur) 40 meq PO ONCE ONE Stop: 03/09/20 09:23 Physical Examination - Vital Signs Vital Signs: Vital Signs Pulse Pulse Ox 84 100 03/09/20 03:33 03/09/20 03:33 Results - Laboratory Findings CBC and BMP: 03/09/20 06:53 03/09/20 04:16 Abnormal Lab Findings: Abnormal Labs 03/09/20 03/09/20 03/09/20 04:16 05:04 06:53 RBC 2.74 L Hgb 9.1 L Hct 26.3 L MCH 33 H MCHC 35 H RDW 13.0 L Lymph % (Auto) 11.6 L Lymph # (Auto) 1.0 L Seg Neutrophils % 81.8 H POC ABG pCO2 22.5 L POC ABG pO2 45.6 L ABG Hemoglobin 4.2 L ABG Sodium 130.2 L ABG Glucose 48 L Potassium 3.3 L Creatinine 0.5 L Glucose 104 H POC Glucose Calcium 8.3 L Total Protein 6.1 L Albumin 3.4 L Arterial Blood Glucose 48 L Arterial Blood Ionized Calcium 4.2 L 03/09/20 08:34 RBC Hgb Hct MCH MCHC RDW Lymph % (Auto) Lymph # (Auto) Seg Neutrophils % POC ABG pCO2 POC ABG pO2 ABG Hemoglobin ABG Sodium ABG Glucose Potassium Creatinine Glucose POC Glucose 109 H Calcium Total Protein Albumin Arterial Blood Glucose Arterial Blood Ionized Calcium
[2020-03-09 10:02] LABS: Cannabinoid Screen,Urine Positive
[2020-03-09] MEDS ORDERED: POTASSIUM CHLORIDE ER 20 MEQ TAB PO ONE (11:00)
[2020-03-09] MEDS ORDERED: LORazepam 2 MG/ML VIAL IV ONE (12:06)
--- NOTE | 2020-03-09 13:08 | Consultation ---
History of Present Illness Consult date: 03/09/20 Requesting physician: AMY KOCH Reason for consult: other (Seizures in ) History of present illness: PULMONARY/CCM CONSULT NOTE (Full dictation # [id number]) Please see dictated notes for full details Medications and Allergies Allergies Allergy/AdvReac Type Severity Reaction Status Date / Time No Known Allergies Allergy Verified 03/07/16 03:03 Home Medications Medication Instructions Recorded Confirmed Last Taken Type Ondansetron [Zofran Odt] 4 mg PO Q8HR PRN #12 tab.rapdis 12/03/18 Unknown Rx Sulfamethoxazole/Trimethoprim 1 each PO BID 10 Days #20 tablet 12/03/18 Unknown Rx [Bactrim DS TAB] Promethazine [Phenergan] 25 mg PO Q6HR PRN #10 tab 06/24/19 Unknown Rx Active Meds: Active Medications Hydrophilic Ointment (Vaseline Lip Therapy) 1 applic TP Q2HR PRN PRN Reason: Dry Lips Levetiracetam 1,000 mg/ (Dextrose) 110 mls @ 400 mls/hr IV Q12HR NIGHAT Midazolam HCl 100 mg/ Sodium (Chloride) 100 mls @ 2 mls/hr IV TITR NIGHAT; Protocol Lacosamide 100 mg/ Sodium (Chloride) 110 mls @ 100 mls/hr IV Q12H NIGHAT Potassium Chloride (Kcl 10meq/100ml) 10 meq in 100 mls @ 100 mls/hr IV Q1H NIGHAT Stop: 03/09/20 17:59 Lorazepam (Ativan) 2 mg IV Q4H PRN PRN Reason: Agitation Last Admin: 03/09/20 07:41 Dose: 2 mg Documented by: Multi-Ingred Cream/Lotion/Oil/Oint (Artificial Tears Ophth Oint) 1 applic OU Q4HR PRN PRN Reason: Dry Eye(s) Physical Examination Vital signs: Vital Signs Pulse Pulse Ox 84 100 03/09/20 03:33 03/09/20 03:33 Results - Laboratory Findings CBC and BMP: 03/09/20 06:53 03/09/20 04:16 ABG ABG pH 7.378 (7.320-7.450) 03/09/20 05:04 POC ABG pCO2 22.5 mmHg (32.0-48.0) L 03/09/20 05:04 POC ABG pO2 45.6 mmHg (83-108) L 03/09/20 05:04 POC ABG HCO3 13.0 03/09/20 05:04 Abnormal lab findings: Abnormal Labs 03/09/20 03/09/20 03/09/20 04:16 05:04 06:53 RBC 2.74 L Hgb 9.1 L Hct 26.3 L MCH 33 H MCHC 35 H RDW 13.0 L Lymph % (Auto) 11.6 L Lymph # (Auto) 1.0 L Seg Neutrophils % 81.8 H POC ABG pCO2 22.5 L POC ABG pO2 45.6 L ABG Hemoglobin 4.2 L ABG Sodium 130.2 L ABG Glucose 48 L Potassium 3.3 L Creatinine 0.5 L Glucose 104 H POC Glucose Calcium 8.3 L Total Protein 6.1 L Albumin 3.4 L Arterial Blood Glucose 48 L Arterial Blood Ionized Calcium 4.2 L 03/09/20 08:34 RBC Hgb Hct MCH MCHC RDW Lymph % (Auto) Lymph # (Auto) Seg Neutrophils % POC ABG pCO2 POC ABG pO2 ABG Hemoglobin ABG Sodium ABG Glucose Potassium Creatinine Glucose POC Glucose 109 H Calcium Total Protein Albumin Arterial Blood Glucose Arterial Blood Ionized Calcium
[2020-03-09] MEDS: POTASSIUM CHLORIDE 10 MEQ 10 MEQ/100 ML BAG IV SCH ×3 (13:46→16:07)
--- NOTE | 2020-03-09 15:03 | Consultation ---
PULMONARY CRITICAL CARE CONSULTATION CONSULTING PHYSICIAN: Dr. Jovel, hospitalist and Dr. Whitmore, RAIL GANG SUPERVISOR. CHIEF COMPLAINT AND HISTORY OF PRESENT ILLNESS: The patient is now 24-year-old female with past medical history significant at this time as far as we know for a fact that she is 31 weeks . [facility], secondary to seizures at home while in the bathroom and the exact time was unknown according to them. She told me she has had a history of seizures since childhood. She denied any vaginal bleeding, leakage of fluid. She has had irregular contractions, but there was no evidence of impending demise. The patient was initially given Keppra and given p.r.n. doses of Ativan. I was ultimately contacted about earlier this morning, at which time I spoke with the grubber. This was around 4:30 a.m. She discussed talking with the neurologist, getting recommendations and speaking with the hospitalist. I had advised that the patient be transferred to the Intensive Care Unit and stat arterial blood gas be done because there was a fear that there was a need for impending intubation. As far as I can tell when pacing the history together, the patient was brought to the Intensive Care Unit around 7:00 a.m. to 7:30 this morning. I received a call around 9:00 a.m. that the patient had received some Ativan, was still having seizure-type activity and was not showing any improvement. I had reached out to the hospitalist. At that time, they felt again the need for impending intubation and was given the arterial blood gas from earlier in the morning, which I had not been called, but that was presumably because the only real deficit was hypoxemia that had been corrected with supplemental oxygen. The pO2 was 46. The pCO2 was 23. The pH was normal and compensated at that time. Ultimately, they called the Emergency Room physician and on the evaluation, there was no need clinically for emergent intubation. When I did stop by to see her, the patient was resting in bed. When I started to try and converse with her, she started having a seizure-type activity, which really was manifested by movements of both legs, in particular jerky, shaking movements of the legs and to some extent the upper arms. Of note, she was able to answer questions appropriately during these episodes. I do not have any further history to go by. I was not clear if she is a tobacco user or abuser. The RAIL GANG SUPERVISOR physician states she has not been in this clinic before. The above is as much of the history of presentation as I have. I do not have any history of falls or trauma. PAST MEDICAL HISTORY: Again, according to the records history of seizures, should have been on Keppra, but not taking her medications and a history of lupus. MEDICATIONS: She was on at the time I stopped by to see her, according to the medication administration record, included the following: She had received 100 mg of Vimpat. She had received 1 gram of Keppra IV and was now scheduled q. 12. She had received Ativan. I believe a total of 6 mg earlier in the day and I did push 1 mg during seizure-type/jerking-type activities. Versed drip had earlier been ordered for intubation; however, that was not done. She is also receiving 40 mEq of potassium chloride. ALLERGIES: No known drug allergies. DIET: Well-built lady. Acute weight loss or gain history is unknown. FAMILY AND SOCIAL HISTORY: Apparently lives in the community. Alcohol, tobacco, or illicit drug use or abuse history is unknown. Family history is otherwise unknown. REVIEW OF SYSTEMS: Unobtainable secondary to the patient's medical and mental condition. Since she has been in the hospital, no gross hematochezia or melena, no gross hematuria, no hematemesis. She has had a seizure attack-type activity. PHYSICAL EXAMINATION: VITAL SIGNS: On examination, at presentation over here, review of the vital signs, temperature 98.4, pulse 84, respiratory rate 12, blood pressure 121/73, O2 sats at the time I saw her, O2 sats were 99% on room air. GENERAL: She is a young female, normocephalic, atraumatic, resting in bed with mildly increased respiratory effort at rest. HEAD, EYES, EARS, NOSE AND THROAT: Anicteric. No conjunctival erythema. Oropharynx was moist. No gross jugular venous distention. No thyromegaly. NECK: Grossly, there were no palpable lymph nodes in the supraclavicular or submandibular lymph node chains. LUNGS: Auscultation of both lung george were unremarkable. Lungs were clear bilaterally with good bilateral air movement. HEART: Heart sounds 1 and 2 were heard. They were regular in rate and rhythm at the time of my evaluation without overt rubs or murmurs. ABDOMEN: Soft, protuberant, appropriately with her . Bowel sounds are positive, nontender, no palpable hepatosplenomegaly. EXTREMITIES: Without overt digital clubbing, no cyanosis, no pedal edema. Pedal pulses are 2+ bilaterally. NEUROLOGIC: She has spontaneous movements to all extremities, answering questions appropriately, even during this seizure-type activity. No spasticity, no flaccid muscles. No reported micturition or defecation as may be postictal. SKIN: Normal turgor in the areas examined without overt cellulitis or rash. She had some tattoos. PSYCHIATRIC: Mood and affect could not be addressed, affect to some extent was anxious. LABORATORY DATA: From my review, admission white cell count 9000, hemoglobin 9.1, hematocrit 26.3, platelet count 275. No manual differential. ABG showed a pH of 7.38, pCO2 of 23, pO2 of 46 that was on 100% FiO2 at that time. Serum sodium 137, potassium was 3.3, chloride 101, bicarbonate 23, BUN 7, creatinine 0.5, glucose was 104. AST, liver function tests essentially within normal limits. Urinalysis was negative for nitrites and leukocyte esterase and bland. Urine drug screen was positive only for THC. No microbiology studies. She did have an obstetric ultrasound that was reported as single living intrauterine with estimated sonographic age of 28 weeks 6 days. No significant abnormalities. ASSESSMENT: 1. Seizures versus pseudoseizures. 2. Gravid status. 3. Possible conversion disorder. 4. Anemia that is normocytic. 5. Hypokalemia that is mild. 6. Positive urine drug screen. PLAN: She has had a Teleneurology consultation. My clinical evaluation is somewhat consistent with the impression of the teleneurologist. It is unclear, if we are dealing with seizures or pseudoseizures. She has gotten medications, but she has continued to have these events. This seem to be stimulated whenever one tries to stimulate her or begin a conversation, she starts having this jerky movements again; however, she is able to give a good history. She does not really dropped her oxygen saturations and maintain her airway appropriately. The initial arterial blood gas is most likely a venous stick, possibly just a poor ABG draw as her O2 sats are 100% on room air. 1. I think it is appropriate that we want to get a stat EEG. I have reached out to the services and that is being done as we speak. 2. We have appropriately, I feel, empirically started antiepileptic medications. 3. Regardless of what the EEG shows, I have conversed with the RAIL GANG SUPERVISOR team and I think for the best outcomes for and maternal survival will be to transfer her to a center that can obviously manage the RAIL GANG SUPERVISOR issues, but more importantly monitor her with continuous EEG may be over the next 48-72 hours for possible seizure activity. She will probably benefit from a psychiatric evaluation once we are sure we are not dealing with a major neurologic problem and she will probably benefit also from a CT of the brain to rule out an intracranial process. I have requested records from [facility], which she states she goes to. Hopefully it will shed more light. Electrolytes have been corrected. She will be placed now on GI and DVT prophylaxis. Flu and pneumonia vaccination will be addressed per protocol. The RAIL GANG SUPERVISOR team is going to give her some systemic steroids in case there is a need for emergent delivery. Thank you very much for the consult. We will follow along and make further recommendations as picture progresses/becomes clearer. JOB# [id number] SE/RUTH
--- NOTE | 2020-03-09 15:25 | Event Note ---
Date: 03/09/20 discussed with tele-neurologist who just finished a re-examination Even with a negative EEG she needs to be transferred for continuous EEG monitoring over the next 48-72 hours for best & maternal outcomes I have disclosed same to hospitalist / attending, case management, RN & Charge nurse.
--- NOTE | 2020-03-09 16:17 | Consultation ---
History of Present Illness Consult date: 03/09/20 Reason for Consult: seizures History of present illness: Tele Neurology consult: the patient has ongoing jerking of her body. was already seen by a tele neurology service in the morning. she is also . heavy doses of keppra been given ( 2000 and 750 ) and also was loaded with vimpat 100 mg. now getting keppra 1000 mg bid and vimpat 100 mg i/v bid. PMHx- no significant Medications and Allergies Allergies Allergy/AdvReac Type Severity Reaction Status Date / Time No Known Allergies Allergy Verified 03/07/16 03:03 Home Medications Medication Instructions Recorded Confirmed Last Taken Type Ondansetron [Zofran Odt] 4 mg PO Q8HR PRN #12 tab.rapdis 12/03/18 Unknown Rx Sulfamethoxazole/Trimethoprim 1 each PO BID 10 Days #20 tablet 12/03/18 Unknown Rx [Bactrim DS TAB] Promethazine [Phenergan] 25 mg PO Q6HR PRN #10 tab 06/24/19 Unknown Rx Active Meds: Active Medications Betamethasone Acet/Betameth SodPhos (Celestone Soluspan) 12 mg IM Q24HR NIGHAT Stop: 03/10/20 16:00 Hydrophilic Ointment (Vaseline Lip Therapy) 1 applic TP Q2HR PRN PRN Reason: Dry Lips Levetiracetam 1,000 mg/ (Dextrose) 110 mls @ 400 mls/hr IV Q12HR NIGHAT Midazolam HCl 100 mg/ Sodium (Chloride) 100 mls @ 2 mls/hr IV TITR NIGHAT; Prot ocol Lacosamide 100 mg/ Sodium (Chloride) 110 mls @ 100 mls/hr IV Q12H NIGHAT Potassium Chloride (Kcl 10meq/100ml) 10 meq in 100 mls @ 100 mls/hr IV Q1H NIGHAT Stop: 03/09/20 17:59 Last Admin: 03/09/20 16:07 Dose: 100 mls/hr Documented by: Lorazepam (Ativan) 2 mg IV Q4H PRN PRN Reason: Agitation Last Admin: 03/09/20 07:41 Dose: 2 mg Documented by: Multi-Ingred Cream/Lotion/Oil/Oint (Artificial Tears Ophth Oint) 1 applic OU Q4HR PRN PRN Reason: Dry Eye(s) Review of Systems All systems: negative (difficult to obtaine) Physical Examination - Vital Signs Vital Signs: Vital Signs Pulse Pulse Ox 84 100 03/09/20 03:33 03/09/20 03:33 - Physical Exam Narrative exam: Neurology examination: trembling of her legs and forward and backwards movements of her torso and head. when called she opens her eyes, and she talks. she can tell her name. she can tell her birthday. she can tell her address. when asked, she can stick out her tongue. Laboratory Results - last 72 hr 03/09/20 03/09/20 03/09/20 04:16 05:00 05:04 WBC RBC Hgb Hct MCV MCH MCHC RDW Plt Count Lymph % (Auto) [place] % (Auto) Eos % (Auto) Baso % (Auto) Lymph # (Auto) [place] # (Auto) Eos # (Auto) Baso # (Auto) Seg Neutrophils % Seg Neutrophils # ABG pH 7.378 POC ABG pCO2 22.5 L POC ABG pO2 45.6 L POC ABG HCO3 13.0 POC ABG Base Excess -11.4 ABG Hemoglobin 4.2 L ABG Sodium 130.2 L ABG Potassium 3.7 ABG Chloride 107.0 ABG Glucose 48 L FiO2 100.0 Sodium 137 Potassium 3.3 L Chloride 101.2 Carbon Dioxide 23 Anion Gap 16 BUN 7 Creatinine 0.5 L Estimated GFR > 60 BUN/Creatinine Ratio 14 Glucose 104 H POC Glucose Calcium 8.3 L Total Bilirubin < 0.20 AST 11 ALT 9 Alkaline Phosphatase 80 Total Protein 6.1 L Albumin 3.4 L Albumin/Globulin Ratio 1.3 Arterial Blood Glucose 48 L Arterial Blood Ionized Calcium 4.2 L Urine Color Urine Turbidity Urine pH Ur Specific [place] Urine Protein Urine Glucose (UA) Urine Ketones Urine Blood Urine Nitrite Urine Bilirubin Urine Urobilinogen Ur Leukocyte Esterase Urine WBC (Auto) Urine RBC (Auto) U Epithel Cells (Auto) Urine Bacteria (Auto) Urine Mucus Urine Opiates Screen Urine Methadone Screen Ur Barbiturates Screen Ur Phencyclidine Scrn Ur Amphetamines Screen U Benzodiazepines Scrn Urine Cocaine Screen U Marijuana (THC) Screen Drugs of Abuse Note Blood Type AB POSITIVE Antibody Screen Negative 03/09/20 03/09/20 03/09/20 06:00 06:00 06:53 WBC 9.0 RBC 2.74 L Hgb 9.1 L Hct 26.3 L MCV 96 MCH 33 H MCHC 35 H RDW 13.0 L Plt Count 275 Lymph % (Auto) 11.6 L [place] % (Auto) 6.2 Eos % (Auto) 0.2 Baso % (Auto) 0.2 Lymph # (Auto) 1.0 L [place] # (Auto) 0.6 Eos # (Auto) 0.0 Baso # (Auto) 0.0 Seg Neutrophils % 81.8 H Seg Neutrophils # 7.4 ABG pH POC ABG pCO2 POC ABG pO2 POC ABG HCO3 POC ABG Base Excess ABG Hemoglobin ABG Sodium ABG Potassium ABG Chloride ABG Glucose FiO2 Sodium Potassium Chloride Carbon Dioxide Anion Gap BUN Creatinine Estimated GFR BUN/Creatinine Ratio Glucose POC Glucose Calcium Total Bilirubin AST ALT Alkaline Phosphatase Total Protein Albumin Albumin/Globulin Ratio Arterial Blood Glucose Arterial Blood Ionized Calcium Urine Color Yellow Urine Turbidity Clear Urine pH 7.0 Ur Specific [place] 1.025 Urine Protein <15 mg/dl Urine Glucose (UA) 50 Urine Ketones Neg Urine Blood Neg Urine Nitrite Neg Urine Bilirubin Neg Urine Urobilinogen < 2.0 Ur Leukocyte Esterase Neg Urine WBC (Auto) 1.0 Urine RBC (Auto) 3.0 U Epithel Cells (Auto) 7.0 Urine Bacteria (Auto) 1+ Urine Mucus 1+ Urine Opiates Screen Negative Urine Methadone Screen Negative Ur Barbiturates Screen Negative Ur Phencyclidine Scrn Negative Ur Amphetamines Screen Negative U Benzodiazepines Scrn Negative Urine Cocaine Screen Negative U Marijuana (THC) Screen Positive Drugs of Abuse Note Disclamer Blood Type Antibody Screen 03/09/20 08:34 WBC RBC Hgb Hct MCV MCH MCHC RDW Plt Count Lymph % (Auto) [place] % (Auto) Eos % (Auto) Baso % (Auto) Lymph # (Auto) [place] # (Auto) Eos # (Auto) Baso # (Auto) Seg Neutrophils % Seg Neutrophils # ABG pH POC ABG pCO2 POC ABG pO2 POC ABG HCO3 POC ABG Base Excess ABG Hemoglobin ABG Sodium ABG Potassium ABG Chloride ABG Glucose FiO2 Sodium Potassium Chloride Carbon Dioxide Anion Gap BUN Creatinine Estimated GFR BUN/Creatinine Ratio Glucose POC Glucose 109 H Calcium Total Bilirubin AST ALT Alkaline Phosphatase Total Protein Albumin Albumin/Globulin Ratio Arterial Blood Glucose Arterial Blood Ionized Calcium Urine Color Urine Turbidity Urine pH Ur Specific [place] Urine Protein Urine Glucose (UA) Urine Ketones Urine Blood Urine Nitrite Urine Bilirubin Urine Urobilinogen Ur Leukocyte Esterase Urine WBC (Auto) Urine RBC (Auto) U Epithel Cells (Auto) Urine Bacteria (Auto) Urine Mucus Urine Opiates Screen Urine Methadone Screen Ur Barbiturates Screen Ur Phencyclidine Scrn Ur Amphetamines Screen U Benzodiazepines Scrn Urine Cocaine Screen U Marijuana (THC) Screen Drugs of Abuse Note Blood Type Antibody Screen Results - Laboratory Findings CBC and BMP: 03/09/20 06:53 03/09/20 04:16 Abnormal Lab Findings: Abnormal Labs 03/09/20 03/09/20 03/09/20 04:16 05:04 06:53 RBC 2.74 L Hgb 9.1 L Hct 26.3 L MCH 33 H MCHC 35 H RDW 13.0 L Lymph % (Auto) 11.6 L Lymph # (Auto) 1.0 L Seg Neutrophils % 81.8 H POC ABG pCO2 22.5 L POC ABG pO2 45.6 L ABG Hemoglobin 4.2 L ABG Sodium 130.2 L ABG Glucose 48 L Potassium 3.3 L Creatinine 0.5 L Glucose 104 H POC Glucose Calcium 8.3 L Total Protein 6.1 L Albumin 3.4 L Arterial Blood Glucose 48 L Arterial Blood Ionized Calcium 4.2 L 03/09/20 08:34 RBC Hgb Hct MCH MCHC RDW Lymph % (Auto) Lymph # (Auto) Seg Neutrophils % POC ABG pCO2 POC ABG pO2 ABG Hemoglobin ABG Sodium ABG Glucose Potassium Creatinine Glucose POC Glucose 109 H Calcium Total Protein Albumin Arterial Blood Glucose Arterial Blood Ionized Calcium Assessment and Plan the patient has ongoing jerking of her body. was already seen by a tele neurology service in the morning. she is also . heavy doses of keppra been given ( 2000 and 750 ) and also was loaded with vimpat 100 mg. now getting keppra 1000 mg bid and vimpat 100 mg i/v bid. on exam- trembling of her legs and forward and backwards movements of her torso and head. when called she opens her eyes, and she talks. she can tell her name. she can tell her birthday. she can tell her address. when asked, she can stick out her tongue. 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 Plan- EEG is awaited . the patient would need to be the setting of continuos EEG monitoring. also discussed with the optical laboratory technician. watch airway.
[2020-03-09] MEDS: ONDANSETRON 4 MG/2 ML INJ IV PRN (18:10)
[2020-03-09] MEDS: BETAMET ACET/BETAMET NA PH 6 MG/ML INJ 5 ML MDV IM SCH (18:19)
[2020-03-09] MEDS: LACOSAMIDE 100 MG in SODIUM CHLORIDE 0.9% 100 ML IV SCH (21:53)
[2020-03-09] MEDS: levETIRAcetam 1,000 MG in DEXTROSE 5% IN WATER 100 ML IV SCH (21:54)
[2020-03-09] MEDS ORDERED: levETIRAcetam 500 MG TAB PO SCH (22:00)
[2020-03-10] MEDS: ONDANSETRON 4 MG/2 ML INJ IV PRN (02:31)
[2020-03-10] MEDS ORDERED: ACETAMINOPHEN 325 MG TAB PO PRN (03:28)
[2020-03-10] MEDS ORDERED: ACETAMINOPHEN 325 MG TAB ONE (03:33)
--- NOTE | 2020-03-10 03:36 | XRay Report ---
CHEST 1 VIEW 03/10/2020 2:25 AM INDICATION / CLINICAL INFORMATION: follow up respiratory failure. COMPARISON: None available. FINDINGS: SUPPORT DEVICES: None. HEART / MEDIASTINUM: No significant abnormality. LUNGS / PLEURA: Left costophrenic angle excluded. No acute pulmonary abnormality seen. No pneumothora x. ADDITIONAL FINDINGS: No significant additional findings. IMPRESSION: 1. No acute findings. Signer Name: Cristino Osoroi MD Signed: 03/10/2020 3:31 AM Workstation Name: [id number]
--- NOTE | 2020-03-10 07:17 | Ultrasound Report ---
ULTRASOUND OBSTETRIC LIMITED ULTRASOUND BIOPHYSICAL PROFILE INDICATION / CLINICAL INFORMATION: labor. COMPARISON: None available. FINDINGS: BREATHING MOVEMENT = 2 GROSS BODY MOVEMENT = 2 TONE = 2 QUALITATIVE AMNIOTIC FLUID VOLUME = 2 TOTAL BIOPHYSICAL SCORE = 8/8 HEART RATE (beats per minute): 156 ADDITIONAL FINDINGS: None. IMPRESSION: 1. Biophysical Score = 8/8 Signer Name: Cristino Osorio MD Signed: 03/10/2020 7:13 AM Workstation Name: [id number]
--- NOTE | 2020-03-10 07:17 | Event Note ---
Date: 03/09/20 Transfer initiated to [facility] [facility] service for continuous EEG monitoring
[2020-03-10] MEDS: LACOSAMIDE 100 MG in SODIUM CHLORIDE 0.9% 100 ML IV SCH (09:42)
[2020-03-10] MEDS: levETIRAcetam 1,000 MG in DEXTROSE 5% IN WATER 100 ML IV SCH (09:43)
--- NOTE | 2020-03-10 12:48 | Progress Note ---
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 I explained this recommendation to the patient but she is insistent that she does want to go home and follow up with her Neurologist and OB as an outpatient. Discussed with Hospitalist. Subjective Date of service: 03/10/20 Interval history: Follow up for: Seizures in a pregnaant womad. Patient seen and examined. Vitals, labs, medications, chart reviewed. Medical records reviewed. No adverse overnight events documented. States she has not had a seizure since midnight. Requesting discharge, states she has follow up appointments with high school science tutor and her Neurologist at [place] fro Saturday03/14/2020 at [place]. She denies any chest pain, no shortness of breath, no fevers or chills. no diarrhea or vomiting. Objective Vital Signs - 12hr 03/10/20 03/10/20 03/10/20 00:51 01:00 01:11 Temperature Pulse Rate 93 H 91 H 91 H Pulse Rate [ From Monitor] Respiratory 30 H 29 H 30 H Rate Blood Pressure 122/78 112/71 112/71 O2 Sat by Pulse 100 100 100 Oximetry 03/10/20 03/10/20 03/10/20 01:21 01:30 01:41 Temperature Pulse Rate 85 91 H 93 H Pulse Rate [ From Monitor] Respiratory 24 28 H 33 H Rate Blood Pressure 112/71 117/73 117/73 O2 Sat by Pulse 100 100 100 Oximetry 03/10/20 03/10/20 03/10/20 01:51 02:01 02:10 Temperature Pulse Rate 90 92 H 86 Pulse Rate [ From Monitor] Respiratory 31 H 16 13 Rate Blood Pressure 117/73 109/67 122/78 O2 Sat by Pulse 100 100 100 Oximetry 10/06/2903/10/20 03/10/20 02:21 02:31 02:41 Temperature Pulse Rate 94 H 98 H 86 Pulse Rate [ From Monitor] Respiratory 17 18 15 Rate Blood Pressure 109/67 109/67 O2 Sat by Pulse 100 100 100 Oximetry 03/10/20 03/10/20 03/10/20 02:51 03:00 03:11 Temperature Pulse Rate 85 98 H 92 H Pulse Rate [ From Monitor] Respiratory 23 17 16 Rate Blood Pressure 109/67 122/79 122/79 O2 Sat by Pulse 100 100 100 Oximetry 03/10/20 03/10/20 03/10/20 03:21 03:30 03:41 Temperature Pulse Rate 92 H 99 H 109 H Pulse Rate [ From Monitor] Respiratory 18 16 12 Rate Blood Pressure 122/79 114/79 114/79 O2 Sat by Pulse 100 100 96 Oximetry 03/10/20 03/10/20 03/10/20 03:51 04:00 04:11 Temperature 98.2 F Pulse Rate 97 H 102 H 88 Pulse Rate [ 91 H From Monitor] Respiratory 12 22 20 Rate Blood Pressure 114/79 117/79 117/79 O2 Sat by Pulse 100 100 100 Oximetry 03/10/20 03/10/20 03/10/20 04:21 04:30 04:41 Temperature Pulse Rate 97 H 93 H 96 H Pulse Rate [ From Monitor] Respiratory 14 28 H 27 H Rate Blood Pressure 117/79 118/68 118/68 O2 Sat by Pulse 100 100 100 Oximetry 03/10/20 03/10/20 03/10/20 04:51 05:00 05:11 Temperature Pulse Rate 94 H 94 H 94 H Pulse Rate [ From Monitor] Respiratory 26 H 26 H 27 H Rate Blood Pressure 118/68 113/65 113/65 O2 Sat by Pulse 100 100 100 Oximetry 03/10/20 03/10/20 03/10/20 05:21 05:30 05:41 Temperature Pulse Rate 95 H 97 H 101 H Pulse Rate [ From Monitor] Respiratory 25 H 27 H 28 H Rate Blood Pressure 113/65 113/65 113/65 O2 Sat by Pulse 100 100 100 Oximetry 03/10/20 03/10/20 03/10/20 05:51 06:00 06:11 Temperature Pulse Rate 88 88 98 H Pulse Rate [ From Monitor] Respiratory 29 H 26 H 26 H Rate Blood Pressure 113/65 106/60 106/60 O2 Sat by Pulse 100 100 100 Oximetry 03/10/20 03/10/20 03/10/20 06:21 06:30 06:41 Temperature Pulse Rate 92 H 90 90 Pulse Rate [ From Monitor] Respiratory 25 H 26 H 17 Rate Blood Pressure 106/60 111/65 111/65 O2 Sat by Pulse 100 100 100 Oximetry 03/10/20 03/10/20 03/10/20 06:51 07:00 07:11 Temperature Pulse Rate 89 83 84 Pulse Rate [ From Monitor] Respiratory 21 28 H 29 H Rate Blood Pressure 111/65 110/65 110/65 O2 Sat by Pulse 100 100 100 Oximetry 03/10/20 03/10/20 03/10/20 07:20 07:30 07:41 Temperature Pulse Rate 81 81 80 Pulse Rate [ From Monitor] Respiratory 24 24 25 H Rate Blood Pressure 110/65 102/59 110/65 O2 Sat by Pulse 100 100 100 Oximetry 03/10/20 03/10/20 03/10/20 07:51 08:00 08:11 Temperature 97.9 F Pulse Rate 81 83 78 Pulse Rate [ 91 H From Monitor] Respiratory 26 H 28 H 26 H Rate Blood Pressure 110/65 110/59 110/59 O2 Sat by Pulse 100 100 100 Oximetry 03/10/20 03/10/20 03/10/20 08:21 08:30 08:41 Temperature Pulse Rate 87 82 87 Pulse Rate [ From Monitor] Respiratory 26 H 30 H 31 H Rate Blood Pressure 102/59 114/66 114/66 O2 Sat by Pulse 100 100 100 Oximetry 03/10/20 03/10/20 03/10/20 08:51 09:00 09:11 Temperature Pulse Rate 81 85 76 Pulse Rate [ From Monitor] Respiratory 27 H 26 H 25 H Rate Blood Pressure 114/66 109/70 109/70 O2 Sat by Pulse 100 100 100 Oximetry 03/10/20 03/10/20 03/10/20 09:21 09:30 09:41 Temperature Pulse Rate 96 H 103 H 100 H Pulse Rate [ From Monitor] Respiratory 25 H 19 14 Rate Blood Pressure 109/70 116/66 116/66 O2 Sat by Pulse 100 100 100 Oximetry 03/10/20 03/10/20 03/10/20 09:51 10:00 10:11 Temperature Pulse Rate 100 H 99 H 98 H Pulse Rate [ From Monitor] Respiratory 19 18 16 Rate Blood Pressure 116/66 119/71 119/71 O2 Sat by Pulse 100 100 100 Oximetry 03/10/20 03/10/20 03/10/20 10:21 10:30 10:41 Temperature Pulse Rate 94 H 99 H 90 Pulse Rate [ From Monitor] Respiratory 11 L 19 21 Rate Blood Pressure 119/71 128/72 128/72 O2 Sat by Pulse 100 100 100 Oximetry 03/10/20 03/10/20 03/10/20 10:51 11:00 11:11 Temperature Pulse Rate 88 90 94 H Pulse Rate [ From Monitor] Respiratory 16 24 16 Rate Blood Pressure 128/72 128/75 128/75 O2 Sat by Pulse 100 100 100 Oximetry 03/10/20 03/10/20 03/10/20 11:21 11:30 11:41 Temperature Pulse Rate 91 H 96 H 94 H Pulse Rate [ From Monitor] Respiratory 19 20 11 L Rate Blood Pressure 128/75 108/60 108/60 O2 Sat by Pulse 100 100 100 Oximetry 03/10/20 03/10/20 03/10/20 11:51 12:00 12:11 Temperature Pulse Rate 91 H 90 88 Pulse Rate [ 92 H From Monitor] Respiratory 21 23 26 H Rate Blood Pressure 108/60 106/69 106/69 O2 Sat by Pulse 100 100 100 Oximetry 03/10/20 03/10/20 03/10/20 12:21 12:30 12:41 Temperature Pulse Rate 97 H 95 H 94 H Pulse Rate [ From Monitor] Respiratory 14 19 19 Rate Blood Pressure 106/69 116/68 116/68 O2 Sat by Pulse 100 100 Oximetry Constitutional: no acute distress, alert Eyes: non-icteric ENT: oropharynx moist Neck: supple, no lymphadenopathy Effort: normal Ascultation: Bilateral: clear, diminished breath sounds Cardiovascular: regular rate and rhythm, other (S1,S2) Gastrointestinal: normoactive bowel sounds, soft, other (Gravid uterus) Integumentary: normal Extremities: no cyanosis, no edema, pink and warm, pulses normal Neurologic: normal mental status, non-focal exam, pupils equal and round, CN II- XII normal, motor strength normal and Psychiatric: mood appropriate, affect normal CBC and BMP: 03/09/20 06:53 03/09/20 04:16 ABG, PT/INR, D-dimer: ABG ABG pH 7.378 (7.320-7.450) 03/09/20 05:04 POC ABG pCO2 22.5 mmHg (32.0-48.0) L 03/09/20 05:04 POC ABG pO2 45.6 mmHg (83-108) L 03/09/20 05:04 POC ABG HCO3 13.0 03/09/20 05:04 Abnormal lab findings: Abnormal Labs 03/09/20 03/09/20 03/09/20 04:16 05:04 06:53 RBC 2.74 L Hgb 9.1 L Hct 26.3 L MCH 33 H MCHC 35 H RDW 13.0 L Lymph % (Auto) 11.6 L Lymph # (Auto) 1.0 L Seg Neutrophils % 81.8 H POC ABG pCO2 22.5 L POC ABG pO2 45.6 L ABG Hemoglobin 4.2 L ABG Sodium 130.2 L ABG Glucose 48 L Potassium 3.3 L Creatinine 0.5 L Glucose 104 H POC Glucose Calcium 8.3 L Total Protein 6.1 L Albumin 3.4 L Arterial Blood Glucose 48 L Arterial Blood Ionized Calcium 4.2 L 03/09/20 03/09/20 08:34 23:42 RBC Hgb Hct MCH MCHC RDW Lymph % (Auto) Lymph # (Auto) Seg Neutrophils % POC ABG pCO2 POC ABG pO2 ABG Hemoglobin ABG Sodium ABG Glucose Potassium Creatinine Glucose POC Glucose 109 H 114 H Calcium Total Protein Albumin Arterial Blood Glucose Arterial Blood Ionized Calcium
[2020-03-10] MEDS: BETAMET ACET/BETAMET NA PH 6 MG/ML INJ 5 ML MDV IM SCH (12:55)
--- NOTE | 2020-03-10 15:02 | Discharge Summary ---
Providers - Providers Date of Admission: 03/09/20 04:17 Date of discharge: 03/10/20 Attending physician: MICHELLE HERNANDEZ 03/09/20 08:50 Consult to Physician [CONS] Urgent Comment: Consulting Provider: AMY KOCH Physician Instructions: Reason For Exam: Seizures, IUP at 31wks 03/09/20 09:13 Consult to Dietitian/Nutrition [CONS] Routine Physician Instructions: Reason For Exam: Reason for Consult: Evaluate nutritional intake 03/09/20 09:20 Consult to Physician [CONS] Routine Comment: Consulting Provider: BRYANT AMBRIZ Physician Instructions: Reason For Exam: seizure 03/09/20 11:58 Consult to Physician [CONS] Routine Comment: Consulting Provider: JENNIFER BURNHAM Physician Instructions: Reason For Exam: Critical care management Primary care physician: MICHELLE HERNANDEZ Hospitalization Hospital course: Patient admitted for continued seizures and postictal state patient is . Pt is a 24 year old SCOTT 05[birth year] at 31w0d presents via EMS secondary to seizures at home in the bathroom, exact time unknown., around 3 am. She does report a h/o of seizures since childhood. She reports irregular contractions, but denies vaginal bleeding or leakage of fluid. She has had care at [place] with [facility], but records are not available for review at this time. History is limited as pt is postictal. 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 (2) Current Visit: Yes Status: Acute Plan to address problem: To be managed by STEPDOWN NURSE-Vargas Peñaloza She has follow-up appointment with [facility] tomorrow (3) DVT prophylaxis Current Visit: Yes Status: Acute Plan to address problem: On SCDs and GI prophylaxis The high probability OF a clinically significant sudden or life-threatening deterioration of the cardiorespiratory system and endocrine system required my full and direct attention, intervention and postoperative management. The aggregate critical care time was 32 minutes. 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 Status: Acute (2) Status: Acute (3) DVT prophylaxis Status: Acute Core Measure Documentation - Palliative Care Palliative Care/ Comfort Measures: Not Applicable - Core Measures Any of the following diagnoses?: none Exam - Constitutional Vitals: Temp Pulse Resp BP Pulse Ox 98.0 F 85 15 117/73 100 03/10/20 12:00 03/10/20 13:00 03/10/20 13:00 03/10/20 13:00 03/10/20 13:00 General appearance: Present: no acute distress, well-nourished - EENT Eyes: Present: PERRL ENT: hearing intact, clear oral mucosa - Neck Neck: Present: supple, normal ROM - Respiratory Respiratory effort: normal Respiratory: bilateral: CTA - Cardiovascular Heart rate: 78 Rhythm: regular Heart Sounds: Present: S1 & S2. Absent: rub, click - Extremities Extremities: pulses symmetrical, No edema Peripheral Pulses: within normal limits - Abdominal General gastrointestinal: Present: soft, non-tender, non-distended, normal bowel sounds Female genitourinary: Present: normal - Integumentary Integumentary: Present: clear, warm, dry - Musculoskeletal Musculoskeletal: gait normal, strength equal bilaterally - Psychiatric Psychiatric: appropriate mood/affect, intact judgment & insight - Neurologic Neurologic: CNII-XII intact, moves all extremities Plan Activity: no restrictions Diet: regular Follow up with: MICHELLE HERNANDEZ MD [Primary Care Provider] - 7 Days
--- NOTE | 2020-03-10 15:16 | Progress Note ---
Assessment and Plan A: IUP at 31w1d Seizure Disorder initially with frequent seizures, no seizure activity noted in greater than 12 hours Lupus P: Pt may be discharged home from an obstetric perspective. She has been instructed to follow up with her Art Conservator at [facility] tomorrow and to take her prescribed medication consistently. Subjective - Subjective Date of service: 03/10/20 Principal diagnosis: IUP at 31w1d; Seizure Activity Interval history: Pt feels well today. No seizure since last night. She reports no abdominal pain, leakage of fluid, vaginal bleeding. She notes good movement. She feels well and would like to go home. She had an NST this afternoon that was Category I. Patient reports: movement normal, no new complaints, no loss of fluid, no vaginal bleeding, no contractions Objective - Vital Signs Vital Signs: Vital Signs - 12hr 03/10/20 03/10/20 03/10/20 03:21 03:30 03:41 Temperature Pulse Rate 92 H 99 H 109 H Pulse Rate [ From Monitor] Respiratory 18 16 12 Rate Blood Pressure 122/79 114/79 114/79 O2 Sat by Pulse 100 100 96 Oximetry 03/10/20 03/10/20 03/10/20 03:51 04:00 04:11 Temperature 98.2 F Pulse Rate 97 H 102 H 88 Pulse Rate [ 91 H From Monitor] Respiratory 12 22 20 Rate Blood Pressure 114/79 117/79 117/79 O2 Sat by Pulse 100 100 100 Oximetry 03/10/20 03/10/20 03/10/20 04:21 04:30 04:41 Temperature Pulse Rate 97 H 93 H 96 H Pulse Rate [ From Monitor] Respiratory 14 28 H 27 H Rate Blood Pressure 117/79 118/68 118/68 O2 Sat by Pulse 100 100 100 Oximetry 03/10/20 03/10/20 03/10/20 04:51 05:00 05:11 Temperature Pulse Rate 94 H 94 H 94 H Pulse Rate [ From Monitor] Respiratory 26 H 26 H 27 H Rate Blood Pressure 118/68 113/65 113/65 O2 Sat by Pulse 100 100 100 Oximetry 03/10/20 03/10/20 03/10/20 05:21 05:30 05:41 Temperature Pulse Rate 95 H 97 H 101 H Pulse Rate [ From Monitor] Respiratory 25 H 27 H 28 H Rate Blood Pressure 113/65 113/65 113/65 O2 Sat by Pulse 100 100 100 Oximetry 03/10/20 03/10/20 03/10/20 05:51 06:00 06:11 Temperature Pulse Rate 88 88 98 H Pulse Rate [ From Monitor] Respiratory 29 H 26 H 26 H Rate Blood Pressure 113/65 106/60 106/60 O2 Sat by Pulse 100 100 100 Oximetry 03/10/20 03/10/20 03/10/20 06:21 06:30 06:41 Temperature Pulse Rate 92 H 90 90 Pulse Rate [ From Monitor] Respiratory 25 H 26 H 17 Rate Blood Pressure 106/60 111/65 111/65 O2 Sat by Pulse 100 100 100 Oximetry 03/10/20 03/10/20 03/10/20 06:51 07:00 07:11 Temperature Pulse Rate 89 83 84 Pulse Rate [ From Monitor] Respiratory 21 28 H 29 H Rate Blood Pressure 111/65 110/65 110/65 O2 Sat by Pulse 100 100 100 Oximetry 03/10/20 03/10/20 03/10/20 07:20 07:30 07:41 Temperature Pulse Rate 81 81 80 Pulse Rate [ From Monitor] Respiratory 24 24 25 H Rate Blood Pressure 110/65 102/59 110/65 O2 Sat by Pulse 100 100 100 Oximetry 03/10/20 03/10/20 03/10/20 07:51 08:00 08:11 Temperature 97.9 F Pulse Rate 81 83 78 Pulse Rate [ 91 H From Monitor] Respiratory 26 H 28 H 26 H Rate Blood Pressure 110/65 110/59 110/59 O2 Sat by Pulse 100 100 100 Oximetry 03/10/20 03/10/20 03/10/20 08:21 08:30 08:41 Temperature Pulse Rate 87 82 87 Pulse Rate [ From Monitor] Respiratory 26 H 30 H 31 H Rate Blood Pressure 102/59 114/66 114/66 O2 Sat by Pulse 100 100 100 Oximetry 03/10/20 03/10/20 03/10/20 08:51 09:00 09:11 Temperature Pulse Rate 81 85 76 Pulse Rate [ From Monitor] Respiratory 27 H 26 H 25 H Rate Blood Pressure 114/66 109/70 109/70 O2 Sat by Pulse 100 100 100 Oximetry 03/10/20 03/10/20 03/10/20 09:21 09:30 09:41 Temperature Pulse Rate 96 H 103 H 100 H Pulse Rate [ From Monitor] Respiratory 25 H 19 14 Rate Blood Pressure 109/70 116/66 116/66 O2 Sat by Pulse 100 100 100 Oximetry 03/10/20 03/10/20 03/10/20 09:51 10:00 10:11 Temperature Pulse Rate 100 H 99 H 98 H Pulse Rate [ From Monitor] Respiratory 19 18 16 Rate Blood Pressure 116/66 119/71 119/71 O2 Sat by Pulse 100 100 100 Oximetry 03/10/20 03/10/20 03/10/20 10:21 10:30 10:41 Temperature Pulse Rate 94 H 99 H 90 Pulse Rate [ From Monitor] Respiratory 11 L 19 21 Rate Blood Pressure 119/71 128/72 128/72 O2 Sat by Pulse 100 100 100 Oximetry 03/10/20 03/10/20 03/10/20 10:51 11:00 11:11 Temperature Pulse Rate 88 90 94 H Pulse Rate [ From Monitor] Respiratory 16 24 16 Rate Blood Pressure 128/72 128/75 128/75 O2 Sat by Pulse 100 100 100 Oximetry 03/10/20 03/10/20 03/10/20 11:21 11:30 11:41 Temperature Pulse Rate 91 H 96 H 94 H Pulse Rate [ From Monitor] Respiratory 19 20 11 L Rate Blood Pressure 128/75 108/60 108/60 O2 Sat by Pulse 100 100 100 Oximetry 03/10/20 03/10/20 03/10/20 11:51 12:00 12:11 Temperature 98.0 F Pulse Rate 91 H 90 88 Pulse Rate [ 92 H From Monitor] Respiratory 21 23 26 H Rate Blood Pressure 108/60 106/69 106/69 O2 Sat by Pulse 100 100 100 Oximetry 03/10/20 03/10/20 03/10/20 12:21 12:30 12:41 Temperature Pulse Rate 97 H 95 H 94 H Pulse Rate [ From Monitor] Respiratory 14 19 19 Rate Blood Pressure 106/69 116/68 116/68 O2 Sat by Pulse 100 100 Oximetry 03/10/20 03/10/20 12:51 13:00 Temperature Pulse Rate 92 H 85 Pulse Rate [ From Monitor] Respiratory 21 15 Rate Blood Pressure 116/68 117/73 O2 Sat by Pulse 100 100 Oximetry - Exam Breasts: deferred Abdomen: Present: soft (gravid ) Uterus: Present: normal (gravid ) Uterine Contraction Monitor Mode: External Cervical Dilatation: 1 (unchanged from prior exam ) - Labs Labs: Abnormal Labs 03/09/20 03/09/20 03/09/20 04:16 05:04 06:53 RBC 2.74 L Hgb 9.1 L Hct 26.3 L MCH 33 H MCHC 35 H RDW 13.0 L Lymph % (Auto) 11.6 L Lymph # (Auto) 1.0 L Seg Neutrophils % 81.8 H POC ABG pCO2 22.5 L POC ABG pO2 45.6 L ABG Hemoglobin 4.2 L ABG Sodium 130.2 L ABG Glucose 48 L Potassium 3.3 L Creatinine 0.5 L Glucose 104 H POC Glucose Calcium 8.3 L Total Protein 6.1 L Albumin 3.4 L Arterial Blood Glucose 48 L Arterial Blood Ionized Calcium 4.2 L 03/09/20 03/09/20 08:34 23:42 RBC Hgb Hct MCH MCHC RDW Lymph % (Auto) Lymph # (Auto) Seg Neutrophils % POC ABG pCO2 POC ABG pO2 ABG Hemoglobin ABG Sodium ABG Glucose Potassium Creatinine Glucose POC Glucose 109 H 114 H Calcium Total Protein Albumin Arterial Blood Glucose Arterial Blood Ionized Calcium Laboratory Results - last 24 hr 03/09/20 23:42 POC Glucose 114 H
--- NOTE | 2020-03-10 16:51 | Progress Note ---
Assessment and Plan the shaking resolved. no new shaking. patient is awake and laert and wants to go home. 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 Plan- cont. Keppra 1000 mg po bid and Vimpat 100 mg po bid. add folic acid ( extra dose ) daily as the patient is on now AED. 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 can be discharged home , from Neuro point of view. follow Neuro as out patient. thanks. Subjective Date of service: 03/10/20 Principal diagnosis: IUP at 31w1d; Seizure Activity Interval history: the shaking resolved Objective - Vital Sign Vital Signs - 12hr 03/10/20 03/10/20 03/10/20 04:51 05:00 05:11 Temperature Pulse Rate 94 H 94 H 94 H Pulse Rate [ From Monitor] Respiratory 26 H 26 H 27 H Rate Blood Pressure 118/68 113/65 113/65 O2 Sat by Pulse 100 100 100 Oximetry 03/10/20 03/10/20 03/10/20 05:21 05:30 05:41 Temperature Pulse Rate 95 H 97 H 101 H Pulse Rate [ From Monitor] Respiratory 25 H 27 H 28 H Rate Blood Pressure 113/65 113/65 113/65 O2 Sat by Pulse 100 100 100 Oximetry 03/10/20 03/10/20 03/10/20 05:51 06:00 06:11 Temperature Pulse Rate 88 88 98 H Pulse Rate [ From Monitor] Respiratory 29 H 26 H 26 H Rate Blood Pressure 113/65 106/60 106/60 O2 Sat by Pulse 100 100 100 Oximetry 03/10/20 03/10/20 03/10/20 06:21 06:30 06:41 Temperature Pulse Rate 92 H 90 90 Pulse Rate [ From Monitor] Respiratory 25 H 26 H 17 Rate Blood Pressure 106/60 111/65 111/65 O2 Sat by Pulse 100 100 100 Oximetry 03/10/20 03/10/20 03/10/20 06:51 07:00 07:11 Temperature Pulse Rate 89 83 84 Pulse Rate [ From Monitor] Respiratory 21 28 H 29 H Rate Blood Pressure 111/65 110/65 110/65 O2 Sat by Pulse 100 100 100 Oximetry 03/10/20 03/10/20 03/10/20 07:20 07:30 07:41 Temperature Pulse Rate 81 81 80 Pulse Rate [ From Monitor] Respiratory 24 24 25 H Rate Blood Pressure 110/65 102/59 110/65 O2 Sat by Pulse 100 100 100 Oximetry 03/10/20 03/10/20 03/10/20 07:51 08:00 08:11 Temperature 97.9 F Pulse Rate 81 83 78 Pulse Rate [ 91 H From Monitor] Respiratory 26 H 28 H 26 H Rate Blood Pressure 110/65 110/59 110/59 O2 Sat by Pulse 100 100 100 Oximetry 03/10/20 03/10/20 03/10/20 08:21 08:30 08:41 Temperature Pulse Rate 87 82 87 Pulse Rate [ From Monitor] Respiratory 26 H 30 H 31 H Rate Blood Pressure 102/59 114/66 114/66 O2 Sat by Pulse 100 100 100 Oximetry 03/10/20 03/10/20 03/10/20 08:51 09:00 09:11 Temperature Pulse Rate 81 85 76 Pulse Rate [ From Monitor] Respiratory 27 H 26 H 25 H Rate Blood Pressure 114/66 109/70 109/70 O2 Sat by Pulse 100 100 100 Oximetry 03/10/20 03/10/20 03/10/20 09:21 09:30 09:41 Temperature Pulse Rate 96 H 103 H 100 H Pulse Rate [ From Monitor] Respiratory 25 H 19 14 Rate Blood Pressure 109/70 116/66 116/66 O2 Sat by Pulse 100 100 100 Oximetry 03/10/20 03/10/20 03/10/20 09:51 10:00 10:11 Temperature Pulse Rate 100 H 99 H 98 H Pulse Rate [ From Monitor] Respiratory 19 18 16 Rate Blood Pressure 116/66 119/71 119/71 O2 Sat by Pulse 100 100 100 Oximetry 03/10/20 03/10/20 03/10/20 10:21 10:30 10:41 Temperature Pulse Rate 94 H 99 H 90 Pulse Rate [ From Monitor] Respiratory 11 L 19 21 Rate Blood Pressure 119/71 128/72 128/72 O2 Sat by Pulse 100 100 100 Oximetry 03/10/20 03/10/20 03/10/20 10:51 11:00 11:11 Temperature Pulse Rate 88 90 94 H Pulse Rate [ From Monitor] Respiratory 16 24 16 Rate Blood Pressure 128/72 128/75 128/75 O2 Sat by Pulse 100 100 100 Oximetry 03/10/20 03/10/20 03/10/20 11:21 11:30 11:41 Temperature Pulse Rate 91 H 96 H 94 H Pulse Rate [ From Monitor] Respiratory 19 20 11 L Rate Blood Pressure 128/75 108/60 108/60 O2 Sat by Pulse 100 100 100 Oximetry 03/10/20 03/10/20 03/10/20 11:51 12:00 12:11 Temperature 98.0 F Pulse Rate 91 H 90 88 Pulse Rate [ 92 H From Monitor] Respiratory 21 23 26 H Rate Blood Pressure 108/60 106/69 106/69 O2 Sat by Pulse 100 100 100 Oximetry 03/10/20 03/10/20 03/10/20 12:21 12:30 12:41 Temperature Pulse Rate 97 H 95 H 94 H Pulse Rate [ From Monitor] Respiratory 14 19 19 Rate Blood Pressure 106/69 116/68 116/68 O2 Sat by Pulse 100 100 Oximetry 03/10/20 03/10/20 12:51 13:00 Temperature Pulse Rate 92 H 85 Pulse Rate [ From Monitor] Respiratory 21 15 Rate Blood Pressure 116/68 117/73 O2 Sat by Pulse 100 100 Oximetry Neurology examination: MS- alert awake. oriented- language -nl CN- eomi- no facial asymmetry. M- no arm drift . legs looks nl F_N- nl Laboratory Results - last 24 hr 03/09/20 23:42 POC Glucose 114 H - Laboratory Findings CBC and BMP: 03/09/20 06:53 03/09/20 04:16 Abnormal Lab Findings: Abnormal Labs 03/09/20 03/09/20 03/09/20 04:16 05:04 06:53 RBC 2.74 L Hgb 9.1 L Hct 26.3 L MCH 33 H MCHC 35 H RDW 13.0 L Lymph % (Auto) 11.6 L Lymph # (Auto) 1.0 L Seg Neutrophils % 81.8 H POC ABG pCO2 22.5 L POC ABG pO2 45.6 L ABG Hemoglobin 4.2 L ABG Sodium 130.2 L ABG Glucose 48 L Potassium 3.3 L Creatinine 0.5 L Glucose 104 H POC Glucose Calcium 8.3 L Total Protein 6.1 L Albumin 3.4 L Arterial Blood Glucose 48 L Arterial Blood Ionized Calcium 4.2 L 03/09/20 03/09/20 08:34 23:42 RBC Hgb Hct MCH MCHC RDW Lymph % (Auto) Lymph # (Auto) Seg Neutrophils % POC ABG pCO2 POC ABG pO2 ABG Hemoglobin ABG Sodium ABG Glucose Potassium Creatinine Glucose POC Glucose 109 H 114 H Calcium Total Protein Albumin Arterial Blood Glucose Arterial Blood Ionized Calcium
[2020-03-10 17:28] VITALS: BP 118/60
== END 2020-03-10 16:00 | disposition home or self-care (01) ==
LOC: TRG 03:28 → APU 03:29 → TRG 04:17 → LD 04:17 → CC1 08:53
PROVIDERS: ADMIT Obstetrics & Gynecology; ATTEND Obstetrics & Gynecology
DX: O26.893 Other specified pregnancy related conditions, third trimester (principal); G40.301 Generalized idiopathic epilepsy and epileptic syndromes, not intractable, with status epilepticus; M32.9 Systemic lupus erythematosus, unspecified; E87.6 Hypokalemia; Z3A.31 31 weeks gestation of pregnancy
CPT/HCPCS: 36415; 36600; 71045; 76816; 76819; 80053; 80307; 81001; 82805; 82962; 85025; 86850; 86900; 86901; 95819; 96361; 96365; 96366; 96367; 96368; 96372; 96375; 96376; C9254; G0378; J0702; J1953; J2060; J2405; J3480; 96360; 96374; J7120